=== PATIENT | female | born 1945 | race Caucasian/White ===

== ENCOUNTER 2018-03-19 19:41 | Emergency (ER) | payer MEDICARE, MEDICAID ==
[~2018-03-19] VITALS: Ht 149.9 cm; Wt 59.0 kg
[~2018-03-19 19:41] MED LIST: AC500T PO; ALBU4TAB6 PO; ALBUTERO; AMLO2.5T PO; ASP81TEC PO; CEPH500C PO; CPR500T PO; DOXY100T2 PO; EFFEXOR; ENAL20TA PO; EST.625T PO; GLIP5TAB13 PO; GLIPIZIDE; HYDR-707 PO; INSU100C4 SQ; INSULIN; METF-380 PO; METFORMIN; MTF500T PO; NAPR-243 PO; NCT21TD TD; NITR100C3 PO; PHEN-633 PO; PREMARIN; TRAM-21 PO; VNL75T PO; ZLP10T PO
--- OUTSIDE RECORDS SUMMARY | 2018-03-19 19:46 | XMS REPORT | Continuity of Care Document ---
Author Author [facility] Organization [facility] Address Unknown Phone Unavailable Allergies Active Description Code Type Severity Reaction Onset Reported/Identified Relationship to Patient Clinical Status Yes codeine [id number] Drug Allergy Unknown N/A 08/21/2010 Medications There is no data. Problems Date Dx Coded Attending Type Code Diagnosis Diagnosed By 03/12/2016 HERBIE LUND DO Ot E11.9 TYPE 2 DIABETES MELLITUS WITHOUT COMPLIC 03/12/2016 HERBIE LUND DO Ot F17.210 NICOTINE DEPENDENCE, CIGARETTES, UNCOMPL 03/12/2016 HERBIE LUND DO Ot L02.415 CUTANEOUS ABSCESS OF RIGHT LOWER LIMB 03/12/2016 HERBIE LUND DO Ot Z23 ENCOUNTER FOR IMMUNIZATION 03/12/2016 HERBIE LUND DO Ot Z79.4 AIX ARCHITECT (CURRENT) USE OF INSULIN Procedures There is no data. Results There is no data. Encounters ACCT No. Visit Date/Time Discharge Status Pt. Type Provider Facility Loc./Unit Complaint [id number] 03/12/2016 17:12:00 03/12/2016 19:09:00 DIS Emergency HERBIE LUND DO [facility] ER [id number] 08/23/2014 15:25:00 08/23/2014 16:49:00 DIS Emergency [id number] 03/25/2013 14:56:00 03/25/2013 23:59:59 CLS Outpatient
[2018-03-19] MEDS ORDERED: NS IV 500 ML 500 ML IV ONE (19:52)
--- NOTE | 2018-03-19 20:06 | ED General ---
General Chief Complaint: Respiratory Problems Stated Complaint: WEAKNESS,COUGH Nursing Triage Note: PT TO ED 5 PER W/C W/ FAMILY FOR C/O DIZZINESS, CONFUSION, SOB, WEAKNESS ONSET TODAY AFTER TAKING NYQUIL. FAMILY REPORTS PT APPEARED DISORIENTED AFTER WAKING FROM HER NAP ET THOUGHT DISORIENTATION R/T NYQUIL BUT SYMPTOMS HAVE NOT IMPROVED. NO OTHER C/O VOICED Nursing Sepsis Screen: No Definite Risk Source of Information: Patient Exam Limitations: No Limitations History of Present Illness Date Seen by Provider: March 19, 2018 Time Seen by Provider: 19:50 Initial Comments Here with report of confusion, shortness of breath and weakness that started sometime today earlier this afternoon. Last known well time appears to be earlier this morning. She is noted to have some confusion at 3 p.m. that was worse at 5 p.m. She has had cough recently and has been taking NyQuil. She also has some skin breakdown to her buttock region. Does continue to smoke. Patient is essentially bedridden and the family helps her at home. Timing/Duration: 24 Hours Severity: Moderate Associated Systoms: No Chest Pain; Cough, Loss of Appetite; No Nausea/Vomiting ; Shortness of Air, Weakness Allergies and Home Medications Allergies Coded Allergies: codeine (Unverified Allergy, Unknown, 08/21/10) Home Medications Albuterol Sulfate 4 Mg Tab.sr.12h, 4 MG PO BID, (Reported) Aspirin 81 Mg Tabec, 81 MG PO DAILY, (Reported) Enalapril Maleate 20 Mg Tablet, 20 MG PO HS, (Reported) Glipizide 5 Mg Tablet, 10 MG PO BID, (Reported) Insulin Glargine,Hum.rec.anlog 300 Units/3 Ml Soln, 28 UNITS SQ HS, (Reported) Metformin Hcl 500 Mg Tablet, 1 EACH PO HS, (Reported) Patient Home Medication List Home Medication List Reviewed: Yes Review of Systems Constitutional: see HPI; No chills, No fever EENTM: no symptoms reported Respiratory: see HPI, cough, short of breath Cardiovascular: No chest pain, No edema Gastrointestinal: No abdominal pain, No diarrhea; loss of appetite Genitourinary: no symptoms reported Musculoskeletal: no symptoms reported Skin: see HPI, change in color, lesions (right upper buttock) Psychiatric/Neurological: See HPI, Weakness, Other (confusion) All Other Systems Reviewed Negative Unless Noted: Yes Past Jxjcjvz-Iyqgwv-Izvkav Hx Past Med/Social Hx: Reviewed Nursing Past Med/Soc Hx Patient Social History Alcohol Use: Denies Use Recreational Drug Use: No Smoking Status: Current Everyday Smoker 2nd Hand Smoke Exposure: Yes Recent Foreign Travel: No Contact w/Someone Who Travel: No Recent Infectious Disease Expo: No Recent Hopitalizations: Yes Physical Abuse: No Sexual Abuse: No Mistreated: No Fear: No Seasonal Allergies Seasonal Allergies: No Past Medical History Surgeries: Yes Appendectomy, Coronary Stent, Gallbladder, Hysterectomy, Tonsillectomy Respiratory: Yes Emphysema Cardiac: Yes Coronary Artery Disease, High Cholesterol, Hypertension Neurological: No 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 UTI-Chronic Gastrointestinal: No Musculoskeletal: Yes (bursitis in r hip) Arthritis Endocrine: Yes Diabetes, Insulin dep Cancer: No Psychosocial: No Nursing Suicide Risk Score: 0 Blood Disorders: No Family Medical History Reviewed Nursing Family Hx No Pertinent Family Hx Physical Exam-Suspected Sepsis Physical Exam Vital Signs Vital Signs - First Documented 03/19/18 03/19/18 19:44 19:46 Temp 97.2 Pulse 82 Resp 18 B/P (MAP) 115/64 (81) Pulse Ox 93 O2 Delivery Room Air O2 Flow Rate 2.00 Capillary Refill : Less Than 3 Seconds Blood Pressure Mean: 81 General Appearance: No Apparent Distress, Thin HEENT: PERRL/EOMI, Pharynx Normal Neck: Non Tender, Supple Respiratory: Expiration, Wheezing, Other (coarse lung sounds throughout) Cardiovascular: Regular Rate, Rhythm, No Murmur Gastrointestinal: Non Tender, Soft Back: Normal Inspection, No CVA Tenderness, No Vertebral Tenderness Extremity: Normal Inspection, Normal Range of Motion Neurologic/Psychiatric: Alert, Motor Weakness (global), Other (reports confusion but follows commands well. Appears weak.) Skin: warm/dry, other (2 cm stage II decubitus to the right upper buttock at sacrum.) Focused Exam Lactate Level 03/19/18 20:17: Lactic Acid Level 0.90 Lactic Acid Level Laboratory Tests Test 03/19/18 20:17 Lactic Acid Level 0.90 MMOL/L (0.50-2.00) Progress/Results/Core Measures Suspected Sepsis Recent Fever Within 48 Hours: No Infection Criteria Present: None New/Unexplained Altered Menta: No Sepsis Screen: No Definite Risk SIRS Temperature:97.2 Pulse: 82 Respiratory Rate: 18 Laboratory Tests 03/19/18 20:17: White Blood Count 9.2 Blood Pressure 115 /64 Mean: 81 03/19/18 20:17: Lactic Acid Level 0.90 Laboratory Tests 03/19/18 20:17: Creatinine 4.74H, Platelet Count 565H, Total Bilirubin 0.2 Results/Orders Lab Results Laboratory Tests Test 03/19/18 20:17 03/19/18 20:24 Range/Units White Blood Count 9.2 4.3-11.0 10^3/uL Red Blood Count 3.32 L 4.35-5.85 10^6/uL Hemoglobin 9.8 L 11.5-16.0 G/DL Hematocrit 30 L 35-52 % Mean Corpuscular Volume 90 80-99 FL Mean Corpuscular Hemoglobin 30 25-34 PG Mean Corpuscular Hemoglobin Concent 33 32-36 G/DL Red Cell Distribution Width 15.7 H 10.0-14.5 % Platelet Count 565 H 130-400 10^3/uL Mean Platelet Volume 10.0 7.4-10.4 FL Neutrophils (%) (Auto) 74 42-75 % Lymphocytes (%) (Auto) 18 12-44 % Monocytes (%) (Auto) 7 0-12 % Eosinophils (%) (Auto) 2 0-10 % Basophils (%) (Auto) 1 0-10 % Neutrophils # (Auto) 6.8 1.8-7.8 X 10^3 Lymphocytes # (Auto) 1.6 1.0-4.0 X 10^3 Monocytes # (Auto) 0.6 0.0-1.0 X 10^3 Eosinophils # (Auto) 0.1 0.0-0.3 10^3/uL Basophils # (Auto) 0.1 0.0-0.1 10^3/uL D-Dimer 1.45 H 0.00-0.49 UG/ML Sodium Level 136 135-145 MMOL/L Potassium Level 5.9 H 3.6-5.0 MMOL/L Chloride Level 110 H 98-107 MMOL/L Carbon Dioxide Level 11 L 21-32 MMOL/L Anion Gap 15 H 5-14 MMOL/L Blood Urea Nitrogen 121 *H 7-18 MG/DL Creatinine 4.74 H 0.60-1.30 MG/DL Estimat Glomerular Filtration Rate 9 BUN/Creatinine Ratio 26 Glucose Level 210 H 70-105 MG/DL Lactic Acid Level 0.90 0.50-2.00 MMOL/L Calcium Level 8.6 8.5-10.1 MG/DL Magnesium Level 2.4 1.8-2.4 MG/DL Total Bilirubin 0.2 0.1-1.0 MG/DL Aspartate Amino Transf (AST/SGOT) 9 5-34 U/L Alanine Aminotransferase (ALT/SGPT) 8 0-55 U/L Alkaline Phosphatase 76 40-136 U/L Troponin I 0.47 *H <0.30 NG/ML C-Reactive Protein High Sensitivity 3.62 H 0.00-0.50 MG/DL Total Protein 6.7 6.4-8.2 GM/DL Albumin 3.3 3.2-4.5 GM/DL Thyroid Stimulating Hormone (TSH) 2.60 0.35-4.94 UIU/ML Urine Color YELLOW Urine Clarity VERY CLOUDY H Urine pH 5 5-9 Urine Specific [place] 1.020 1.016-1.022 Urine Protein 4+ NEGATIVE Urine Glucose (UA) NEGATIVE NEGATIVE Urine Ketones NEGATIVE NEGATIVE Urine Nitrite NEGATIVE NEGATIVE Urine Bilirubin NEGATIVE NEGATIVE Urine Urobilinogen NORMAL NORMAL MG/DL Urine Leukocyte Esterase 3+ H NEGATIVE Urine RBC (Auto) 5+ H NEGATIVE Urine RBC 5-10 H /HPF Urine WBC TNTC H /HPF Urine Squamous Epithelial Cells 5-10 /HPF Urine Crystals NONE /LPF Urine Bacteria LARGE H /HPF Urine Casts NONE /LPF Urine Mucus NEGATIVE /LPF Urine Culture Indicated YES My Orders Orders - DEMETRIO GAYLE MD Cbc With Automated Diff (03/19/18 19:52) Comprehensive Metabolic Panel (03/19/18 19:52) Hs C Reactive Protein (03/19/18 19:52) Fibrin Degradation Products (03/19/18 19:52) Lactic Acid Analyzer (03/19/18 19:52) Magnesium (03/19/18 19:52) Thyroid Stimulating Hormone (03/19/18 19:52) Troponin I (03/19/18 19:52) Ua Culture If Indicated (03/19/18 19:52) Blood Culture (03/19/18 19:52) Chest 1 View, Ap/Pa Only (03/19/18 19:52) Saline Lock/Iv-Start (5/1/18 19:52) Ekg Tracing (03/19/18 19:52) O2 (03/19/18 19:52) Monitor-Rhythm Ecg Trace Only (03/19/18 19:52) Ns Iv 500 Ml (Sodium Chloride 0.9%) (03/19/18 19:52) Ct Head Wo-R/O Stroke (03/19/18 20:03) Dysphagia Screening Tool (03/19/18 20:06) Urine Culture (03/19/18 20:24) Saline Lock/Iv-Start (03/19/18 21:07) Ns Iv 1000 Ml (Sodium Chloride 0.9%) (03/19/18 21:07) Ns Iv 1000 Ml (Sodium Chloride 0.9%) (03/19/18 21:04) Catheter(Urinary) Insert & Ass 03,15 (03/19/18 21:15) Ceftriaxone Injection (Rocephin Injectio (03/19/18 21:45) D50w (Emergency) Syringe (Dextrose 50% 5 (03/19/18 21:45) Insulin (Regular) Human (Humulin R (Per (03/19/18 21:42) Saline Lock/Iv-Start (03/19/18 23:36) Ns Iv 1000 Ml (Sodium Chloride 0.9%) (03/19/18 23:36) Ns Iv 1000 Ml (Sodium Chloride 0.9%) (03/19/18 23:33) Medications Given in ED Current Medications Medications Dose Ordered Sig/Belkys Route Start Time Stop Time Status Last Admin Dose Admin Ceftriaxone Sodium 1000 mg/ Sodium Chloride 100 ml @ 200 mls/hr ONCE ONCE IV 03/19/18 21:45 03/19/18 22:14 DC 03/19/18 22:03 200 MLS/HR Dextrose 50 ml ONCE ONCE IV 03/19/18 21:45 03/19/18 21:46 DC 03/19/18 22:03 50 ML Sodium Chloride 1,000 ml @ 0 mls/hr Q0M ONCE IV 03/19/18 21:07 03/19/18 21:08 DC 03/19/18 21:09 1,000 MLS/HR Sodium Chloride 1,000 ml @ 0 mls/hr Q0M ONCE IV 03/19/18 23:36 03/19/18 23:37 DC 03/19/18 23:41 1,000 MLS/HR Vital Signs/I&O 03/19/18 03/19/18 19:44 19:46 Temp 97.2 Pulse 82 Resp 18 B/P (MAP) 115/64 (81) Pulse Ox 93 93 O2 Delivery Room Air Nasal Cannula O2 Flow Rate 2.00 Capillary Refill : Less Than 3 Seconds Blood Pressure Mean: 81 Progress Note : Progress Note Seen and evaluated. Complex picture with multiple comorbidities. IV, labs, UA , EKG, chest x-ray, CT head, blood cultures and lactic acid ordered. Normal saline 500 mL bolus. Monitor patient. 2143: Noted acute renal failure with hyperkalemia. Overall exceeds level of capability here. Henefer one call paged. D50 1 amp IV given and insulin 10 units IV. Patient converted to 1 L of normal saline bolus. Morrison catheter placed to monitor urine output. Rocephin 1 g IV ordered. 2236: I did discuss the case with Dr. Sylvester at [facility] in [place], [place]. He is accepted the patient for transfer. Pending bed assignment. 2330: Repeat normal saline initiated at 250 mL an hour. 2345: Bed received an report being called. Patient will go by EMS. Family informed of all concerns and considerations and agree with transfer. ECG Initial ECG Impression Date: March 19, 2018 Initial ECG Impression Time: 20:11 Initial ECG Rate: 82 Initial ECG Rhythm: Normal Sinus Comment T-wave inversions in leads 1, 2, aVR, V4, V5 and V6 noted. Change from previous of 16 May 2012. No evidence of ST elevation SD. Normal axis. Interpreted by me. Diagnostic Imaging Diagonstic Imaging: CT Plain Films/CT/US/NM/MRI: head Comments CT HEAD WO-R/O STROKE EXAM: CT head without contrast. DATE: 03/19/2018. INDICATION: 72-year-old female, weakness. TECHNIQUE: Axial noncontrast CT images of the head were obtained. COMPARISON: MRI brain 05/20/2012. CT head 05/16/2012. FINDINGS: There are prominent areas of low attenuation in the left frontal and parietal lobes compatible with changes of encephalomalacia. There is proportional prominence of the ventricles and CSF spaces compatible with mild to moderate cerebral volume loss. There is no identified abnormal extra-axial fluid collection. There is no evidence of acute intracranial hemorrhage. There is no mass effect or midline shift. There is an area of encephalomalacia in the left periventricular white matter. There are additional areas of low attenuation in the periventricular and subcortical white matter which most likely reflect moderate changes of chronic small vessel ischemic disease. There is no hydrocephalus. The visualized portions of the paranasal sinuses, mastoid air cells, and middle ears are well aerated. IMPRESSION: 1. No identified acute intracranial abnormality. 2. Changes of encephalomalacia in the left frontal lobe and parietal lobe with remote prior left periventricular white matter infarct. 3. Mild to moderate cerebral volume loss with moderate changes of chronic small vessel ischemic disease. Dictated on workstation # [id number] Dict: 03/19/182105 Trans: 03/19/182114 FRANCESCA [id number] Interpreted by: THERESA ARRIAZA MD Electronically signed by: Gigi Imaging: Xray Plain Films/CT/US/NM/MRI: chest Comments [facility]. [place], [place] NAME: JUSTINOMARINALESLEY Willis [facility] REC#: [id number] PT STATUS: REG ER : 1945 PHYSICIAN: DEMETRIO GAYLE MD ADMIT DATE: 03/19/18/ER Draft Date of Exam:03/19/18 CHEST 1 VIEW, AP/PA ONLY EXAMINATION: Chest radiograph, portable AP view. DATE: 03/19/2018 at 2046 hours. INDICATION: 72-year-old female, cough. COMPARISON: 05/16/2012 FINDINGS: Heart size is at the upper limits of normal. There is no identified pneumothorax. There is nonspecific bibasilar airspace consolidation. There is obscuration of visualization of both hemidiaphragms. The left humeral head is superiorly subluxed which may relate to a chronic full-thickness rotator cuff tendon tear. There are bilateral acromioclavicular degenerative changes. IMPRESSION: 1. Nonspecific bibasilar airspace consolidation which may relate to infiltrate, atelectasis, and/or small effusions. 2. Heart is at the upper limits of normal in size. Dictated on workstation # [id number] Dict: 03/19/182108 Trans: 03/19/182118 FRANCESCA [id number] Interpreted by: THERESA ARRIAZA MD Electronically signed by: Departure Impression Primary Impression: Acute renal failure Qualified Codes: N17.9 - Acute kidney failure, unspecified Additional Impressions: Urinary tract infection Qualified Codes: N30.00 - Acute cystitis without hematuria Hyperkalemia Disposition: 02 XFER SHT-TRM HOSP Condition: Stable Transfer Time Spoke to Accepting Phy: 22:36 Transfer Time: 21:43 Transfer Facility: [place], [place], Dr. Sylvester accepting. Method of Transfer: EMS Departure-Patient Inst. Referrals: ANUPAMA MAHAJAN MD (PCP/Family) Primary Care Physician DEMETRIO GAYLE MD March 19, 2018 20:06
[2018-03-19 20:35] LABS: HEMATOCRIT 30 % (35-52); HEMOGLOBIN 9.8 G/DL (11.5-16.0); MEAN CORPUSCULAR HEMOGLOBIN 30 PG (25-34); MEAN CORPUSCULAR VOLUME 90 FL (80-99); RED BLOOD COUNT 3.32 10^6/uL (4.35-5.85); WHITE BLOOD COUNT 9.2 10^3/uL (4.3-11.0)
[2018-03-19 20:36] LABS: BASOPHILS # (AUTO) 0.1 10^3/uL (0.0-0.1); BASOPHILS % (AUTO) 1 % (0-10); EOSINOPHILS # (AUTO) 0.1 10^3/uL (0.0-0.3); EOSINOPHILS % (AUTO) 2 % (0-10); LYMPHOCYTES # (AUTO) 1.6 X 10^3 (1.0-4.0); LYMPHOCYTES % (AUTO) 18 % (12-44); MEAN CORPUSCULAR HGB CONC 33 G/DL (32-36); MONOCYTES # (AUTO) 0.6 X 10^3 (0.0-1.0); MONOCYTES % (AUTO) 7 % (0-12); NEUTROPHILS # (AUTO) 6.8 X 10^3 (1.8-7.8); NEUTROPHILS % (AUTO) 74 % (42-75); PLATELET COUNT 565 10^3/uL (130-400); RED CELL DISTRIBUTION WIDTH 15.7 % (10.0-14.5)
[2018-03-19 20:39] LABS: BILIRUBIN,URINE NEGATIVE (NEGATIVE); CLARITY,URINE VERY CLOUDY; COLOR,URINE YELLOW; GLUCOSE, URINE (UA) NEGATIVE (NEGATIVE); KETONES,URINE NEGATIVE (NEGATIVE); LEUKOCYTE ESTERASE ,URINE 3+ (NEGATIVE); NITRITE,URINE NEGATIVE (NEGATIVE); PH,URINE 5 (5-9); PROTEIN,URINE 4+ (NEGATIVE); UROBILINOGEN,URINE NORMAL (NORMAL)
[2018-03-19 20:54] LABS: BACTERIA,URINE LARGE /HPF; WBC,URINE TNTC /HPF
[2018-03-19 20:55] LABS: ALBUMIN 3.3 GM/DL (3.2-4.5); BILIRUBIN,TOTAL 0.2 MG/DL (0.1-1.0); CALCIUM 8.6 MG/DL (8.5-10.1); CREATININE SERUM 4.74 MG/DL (0.60-1.30); MAGNESIUM 2.4 MG/DL (1.8-2.4); POTASSIUM 5.9 MMOL/L (3.6-5.0); TOTAL PROTEIN 6.7 GM/DL (6.4-8.2)
[2018-03-19] MEDS ORDERED: NS IV 1000 ML 1,000 ML ONE ×2 (21:04→23:33)
[2018-03-19] MEDS ORDERED: NS IV 1000 ML 1,000 ML IV ONE ×2 (21:07→23:36)
--- NOTE | 2018-03-19 21:16 | Diagnostic Imaging Report ---
EXAM: CT head without contrast. DATE: 03/19/2018. INDICATION: 72-year-old female, weakness. TECHNIQUE: Axial noncontrast CT images of the head were obtained. COMPARISON: MRI brain 05/20/2012. CT head 05/16/2012. FINDINGS: There are prominent areas of low attenuation in the left frontal and parietal lobes compatible with changes of encephalomalacia. There is proportional prominence of the ventricles and CSF spaces compatible with mild to moderate cerebral volume loss. There is no identified abnormal extra-axial fluid collection. There is no evidence of acute intracranial hemorrhage. There is no mass effect or midline shift. There is an area of encephalomalacia in the left periventricular white matter. There are additional areas of low attenuation in the periventricular and subcortical white matter which most likely reflect moderate changes of chronic small vessel ischemic disease. There is no hydrocephalus. The visualized portions of the paranasal sinuses, mastoid air cells, and middle ears are well aerated. IMPRESSION: 1. No identified acute intracranial abnormality. 2. Changes of encephalomalacia in the left frontal lobe and parietal lobe with remote prior left periventricular white matter infarct. 3. Mild to moderate cerebral volume loss with moderate changes of chronic small vessel ischemic disease. Dictated by: Dictated on workstation # [id number]
--- NOTE | 2018-03-19 21:19 | Diagnostic Imaging Report ---
EXAMINATION: Chest radiograph, portable AP view. DATE: 03/19/2018 at 2046 hours. INDICATION: 72-year-old female, cough. COMPARISON: 05/16/2012 FINDINGS: Heart size is at the upper limits of normal. There is no identified pneumothorax. There is nonspecific bibasilar airspace consolidation. There is obscuration of visualization of both hemidiaphragms. The left humeral head is superiorly subluxed which may relate to a chronic full-thickness rotator cuff tendon tear. There are bilateral acromioclavicular degenerative changes. IMPRESSION: 1. Nonspecific bibasilar airspace consolidation which may relate to infiltrate, atelectasis, and/or small effusions. 2. Heart is at the upper limits of normal in size. Dictated by: Dictated on workstation # [id number]
[2018-03-19] MEDS ORDERED: inSUlin (REGULAR) HUMAN 1 UNIT/0.01 ML (CHARGE PER UNIT) IV STA (21:42)
[2018-03-19] MEDS ORDERED: cefTRIAXone INJECTION 1,000 MG in NS (IVPB) 100 ML IV ONE (21:45)
[2018-03-19] MEDS ORDERED: DEXTROSE 50% 50 ML (IMS) SYR IV ONE (21:45)
[2018-03-19] MEDS ORDERED: LEVO5TAB12 PO (22:27)
[2018-03-19] MEDS ORDERED: PREG75CA PO (22:27)
[2018-03-19] MEDS ORDERED: ESTR10TA9 VG (22:27)
[2018-03-19] MEDS ORDERED: INSU100I32 SQ (22:27)
[2018-03-20 00:20] VITALS: BP 97/68
== END 2018-03-20 00:20 | disposition short-term general hospital (02) ==
LOC: EDUNIT# 19:41 → ER 19:43
DX: N17.9 Acute kidney failure, unspecified (principal); N39.0 Urinary tract infection, site not specified; E87.5 Hyperkalemia; F17.200 Nicotine dependence, unspecified, uncomplicated; I25.10 Atherosclerotic heart disease of native coronary artery without angina pectoris; E78.00 Pure hypercholesterolemia, unspecified; I10 Essential (primary) hypertension; E11.9 Type 2 diabetes mellitus without complications; Z79.82 Long term (current) use of aspirin; Z79.4 Long term (current) use of insulin; Z90.49 Acquired absence of other specified parts of digestive tract; Z95.5 Presence of coronary angioplasty implant and graft; Z90.710 Acquired absence of both cervix and uterus
CPT/HCPCS: 36415; 51702; 70450; 71045; 80053; 81000; 83605; 83735; 84132; 84443; 84484; 85025; 85379; 86141; 87040; 87077; 87088; 87186; 93005; 93041; 96361; 96365; 96375